=== PATIENT | female | born 1995 | race American Indian/Alaskan Native ===

== ENCOUNTER 2018-09-24 09:34 | Emergency (ER) | payer OTHER ==
[2018-09-24] MEDS ORDERED: FUL-GLO OP ONE (10:39)
--- NOTE | 2018-09-24 10:39 | Emergency Department Report ---
[facility] Chief Complaint: Eye Problems Stated Complaint: R EYE PAIN/SWOLLEN Duration: 2 Days Side: Right Severity: moderate Symptoms: Yes Eye Itching, Yes Eye Redness, Yes Mucous Drainage, Yes Purulent Drainage, Yes Blurred Vision, Yes Trauma (false eyelashes), No Eye Pain, No Preceding URI, No H/O Allergic Rhinitis, No Contact Lens Use, No Fever, No Headache Other History: This is a 23-year-old [place] female who presents to the emergency room with redness and drainage to right eye. Patient states she took her false eyelashes of Saturday night and when she woke up Saturday morning and her right eye was red and swelling. She also reports watery discharge of blurriness. She denies wearing contacts. ED Review of Systems ROS: Stated complaint: R EYE PAIN/SWOLLEN Other details as noted in HPI Constitutional: denies: chills, fever Eyes: eye discharge (right), vision change (right). denies: eye pain ENT: denies: ear pain, throat pain Respiratory: denies: cough, shortness of breath, wheezing Cardiovascular: denies: chest pain, palpitations Skin: denies: rash, lesions Neurological: denies: headache, weakness, paresthesias Psychiatric: denies: anxiety, depression ED Past Medical Hx - Past Medical History Previous Medical History?: No - Surgical History Past Surgical History?: No - Social History Smoking Status: Never Smoker Substance Use Type: None - Medications Home Medications: Home Medications Medication Instructions Recorded Confirmed Last Taken Type Erythromycin [Erythromycin Ophth 10 applic OP QID #1 tube 09/24/18 Unknown Rx Oint] [facility] Exam - Exam General: Vital signs noted. No distress. Alert and acting appropriately. Eye Exam: Right Injection, Right Chemosis, Right Purulent Discharge, Right Fluorescein Uptake (no signs of abrasion), Both EOMI, Neither Abnormal Pupil, Neither Eye Foreign Body, Neither Lid Foreign Body, Neither Mucous Discharge, Neither Fluorescein Uptake (slit lamp), Neither Cell/Flare (slit lamp), Neither Corneal Edema, Neither Photophobia HEENT: No Nasal Congestion, No Pharyngeal Erythema Remainder of HEENT: Normal Lungs: Yes Clear Lung Sounds, Yes Good Air Exchange, No Wheezes, No Stridor, No Cough, No Nasal Flaring, No Retractions, No Use of Accessory Muscles ED Course Vital Signs 09/24/18 09:37 Temperature 98.1 F Pulse Rate 82 Respiratory 18 Rate Blood Pressure 99/62 O2 Sat by Pulse 98 Oximetry ED Medical Decision Making - Medical Decision Making Patient is stable and was examined by me. Vitals normal. Visual acuity obtained and these show worse on the right without glasses, 20/20 vision bilaterally with glasses. Right eye evaluated with hernandez light and no signs of corneal abrasion. Physical assessment susceptible of conjunctivitis of right eye. Start erythromycin. Discussed plan with patient who agreed with plan. Discharged home in stable condition. Follow up with PCP in 24-72 hours. Critical care attestation.: If time is entered above; I have spent that time in minutes in the direct care of this critically ill patient, excluding procedure time. ED Disposition Clinical Impression: Conjunctivitis Qualifiers: Conjunctivitis type: acute Acute conjunctivitis type: bacterial Laterality: right Qualified Code(s): H10.31 - Unspecified acute conjunctivitis, right eye Disposition: DC- TO HOME OR SELFCARE Is pt being admited?: No Does the pt Need Aspirin: No Condition: Stable Instructions: Conjunctivitis (ED) Additional Instructions: Pinkeye is very contagious so please wash hands frequently. Don't share any towels or bedding to prevent spread of infection. Follow up with a credit intern in 24 hours if symptoms are not improving. Use cool compress to each eye to decrease swelling. Avoid rubbing or touching eyes, because rubbing eyes can cause worsening symptoms. Take medication as prescribed. Return to ER if swelling don't improve or difficulty breathing after 2 days of medication. Prescriptions: Erythromycin [Erythromycin Ophth Oint] 10 applic OP QID #1 tube Referrals: STACY SOUTHMENAHGA MD [facility] [Primary Care Provider] - 3-5 Days JORDON FAUST MD [Staff Physician] - 3-5 Days [facility] [Provider Group] - 3-5 Days [facility] [Provider Group] - 3-5 Days Forms: Work/School Release Form(ED) Time of Disposition: 11:16
[2018-09-24] MEDS ORDERED: TETRACAINE 0.5% OU ONE (10:40)
[2018-09-24 11:28] VITALS: BP 101/64
== END 2018-09-24 11:27 | disposition home or self-care (01) ==
LOC: ED 09:34
DX: H10.9 Unspecified conjunctivitis (principal)